=== PATIENT | female | born 2000 | race African-American/Black ===

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

== ENCOUNTER → 2021-04-04 | Outpatient (CLI) | payer OTHER ==
[~2021-04-04] MED LIST: ZOLPIDEM 5MG TABLET PO ONE
[2021-04-04 02:16] LABS: MICROSCOPIC AUTO
== END | disposition home or self-care (01) ==
LOC: LDOP 01:00
PROVIDERS: ATTEND Obstetrics & Gynecology
DX: O62.9 Abnormality of forces of labor, unspecified (principal); O42.913 Preterm premature rupture of membranes, unspecified as to length of time between rupture and onset of labor, third trimester; Z3A.36 36 weeks gestation of pregnancy
CPT/HCPCS: 59025; 81001; 87081; 87086; 89060; Q0114

== ENCOUNTER 2021-04-30 01:58 | Inpatient (IN) | payer OTHER ==
[~2021-04-30] VITALS: Ht 167.6 cm; Wt 84.1 kg
[2021-04-30 02:20] VITALS: BP 136/73
[2021-04-30] MEDS: LACTATED RINGERS 1,000 ML IVBOLUS PRN ×2 (02:30→03:15)
[2021-04-30] MEDS ORDERED: LIDOCAINE 1%, 20ML ONE (02:54)
[2021-04-30] MEDS ORDERED: MISOPROSTOL 200 MCG TABLET ONE (02:54)
[2021-04-30] MEDS ORDERED: ALUMINUM/MAG/SIMETHICONE 30 ML UDC PO PRN (03:00)
[2021-04-30] MEDS ORDERED: ONDANSETRON 2MG/ML, 2ML IVPush PRN ×2 (03:00→04:00)
[2021-04-30] MEDS ORDERED: LACTATED RINGERS 1,000 ML IV SCH (03:00)
[2021-04-30] MEDS ORDERED: D5%-LACTATED RINGERS 1,000 ML IV SCH (03:00)
[2021-04-30] MEDS ORDERED: FENTANYL PF 100 MCG/2ML IV PRN (03:00)
[2021-04-30] MEDS ORDERED: SODIUM CHLORIDE FLUSH 10ML SYR IVF PRN (03:00)
[2021-04-30] MEDS ORDERED: TERBUTALINE 1 MG/ML, 1ML SQ PRN (03:00)
[2021-04-30] MEDS ORDERED: OXYTOCIN 30U/ 0.9% NaCL 500ML 500 ML IV ONE (03:00)
[2021-04-30] MEDS ORDERED: METOCLOPRAMIDE 5 MG/ML, 2ML IVPush PRN (03:00)
[2021-04-30] MEDS ORDERED: TERBUTALINE 1 MG/ML, 1ML IVPush PRN (03:00)
[2021-04-30] MEDS ORDERED: FENTANYL PF 100 MCG/2ML IVPush PRN (03:00)
[2021-04-30 03:09] LABS: BASOPHILS % (AUTO) 1 % (0-1); EOSINOPHILS % (AUTO) 1 % (1-7); LYMPHOCYTES % (AUTO) 16 % (22-44); MEAN CORPUSCULAR HEMOGLOBIN 26.8 pg (27.0-34.8); MEAN CORPUSCULAR HGB CONC 33.6 g/dL (32.4-35.8); MEAN PLATELET VOLUME 7.5 fL (7.4-10.4); MONOCYTES % (AUTO) 6 % (2-9); NEUTROPHILS % (AUTO) 77 % (42-75); PLATELET COUNT 230 x10^3/uL (130-400); RED BLOOD COUNT 4.26 x10^6/uL (3.82-5.3); RED CELL DISTRIBUTION WIDTH 15.6 % (9.6-15.2)
[2021-04-30] MEDS ORDERED: BUPIVACAINE 0.25% ONE (03:25)
[2021-04-30] MEDS ORDERED: FENTANYL/BUPIV./NS/PF 250 ML EPIDCONT ONE (03:25)
[2021-04-30] MEDS ORDERED: EPHEDRINE 50 MG/ML, 1ML IVPush PRN (04:00)
[2021-04-30] MEDS ORDERED: NALOXONE 0.4 MG/ML, 1ML IVPush PRN (04:00)
[2021-04-30] MEDS ORDERED: FENTANYL/BUPIV./NS/PF 250 ML EPIDCONT SCH (04:00)
[2021-04-30] MEDS ORDERED: DIPHENHYDRAMINE 50 MG/ML, 1ML IVPush PRN (04:00)
[2021-04-30] MEDS: LACTATED RINGERS 1,000 ML IV SCH ×3 (10:27→20:00)
[2021-04-30] MEDS ORDERED: RHOGAM FROM BLOOD BANK 1 NOTE EA IM/IV ONE (10:30)
[2021-04-30] MEDS ORDERED: BISACODYL 10 MG SUPP PR PRN (10:30)
[2021-04-30] MEDS ORDERED: HYDROcodone/APAP 5/325 TABLET PO PRN (10:30)
[2021-04-30] MEDS ORDERED: OXYTOCIN 30U/ 0.9% NaCL 500ML 500 ML ONE (10:30)
[2021-04-30] MEDS ORDERED: MISOPROSTOL 200 MCG TABLET PR PRN (10:30)
[2021-04-30] MEDS ORDERED: ONDANSETRON 2MG/ML, 2ML IV PRN (10:30)
[2021-04-30] MEDS ORDERED: ACETAMINOPHEN 325 MG TABLET PO PRN (10:30)
[2021-04-30] MEDS ORDERED: IBUPROFEN 600 MG TABLET ONE (10:31)
[2021-04-30] MEDS: OXYTOCIN 30U/ 0.9% NaCL 500ML 500 ML IV SCH ×2 (11:08→20:30)
[2021-04-30 12:20] VITALS: BP 102/66
[2021-04-30] MEDS: IBUPROFEN 200 MG TABLET PO PRN ×2 (12:59→21:44)
[2021-04-30] MEDS: OXYcodone/APAP 5/325MG TABLET PO PRN ×3 (12:59→21:45)
[2021-04-30 17:00] VITALS: BP 106/68
[2021-04-30 18:25] LABS: BASOPHILS % (AUTO) 0 % (0-1); EOSINOPHILS % (AUTO) 0 % (1-7); LYMPHOCYTES % (AUTO) 12 % (22-44); MEAN CORPUSCULAR HEMOGLOBIN 27.2 pg (27.0-34.8); MEAN PLATELET VOLUME 7.7 fL (7.4-10.4); MONOCYTES % (AUTO) 4 % (2-9); NEUTROPHILS % (AUTO) 83 % (42-75); PLATELET COUNT 227 x10^3/uL (130-400); RED BLOOD COUNT 3.86 x10^6/uL (3.82-5.3); RED CELL DISTRIBUTION WIDTH 15.1 % (9.6-15.2)
[2021-04-30] MEDS: DOCUSATE 100 MG CAPSULE PO PRN (18:58)
[2021-04-30 19:30] VITALS: BP 108/65
[2021-05-01 01:15] VITALS: BP 103/61
[2021-05-01] MEDS: OXYcodone/APAP 5/325MG TABLET PO PRN (01:58)
[2021-05-01 03:57] VITALS: BP 106/68
[2021-05-01] MEDS: IBUPROFEN 200 MG TABLET PO PRN ×2 (04:01→15:05)
[2021-05-01] MEDS: LACTATED RINGERS 1,000 ML IV SCH ×2 (04:02→12:00)
[2021-05-01] MEDS: OXYTOCIN 30U/ 0.9% NaCL 500ML 500 ML IV SCH (06:30)
[2021-05-01 07:20] VITALS: BP 109/72
[2021-05-01 08:19] LABS: BASOPHILS % (AUTO) 0 % (0-1); EOSINOPHILS % (AUTO) 2 % (1-7); LYMPHOCYTES % (AUTO) 20 % (22-44); MEAN CORPUSCULAR HEMOGLOBIN 26.8 pg (27.0-34.8); MEAN CORPUSCULAR HGB CONC 33.3 g/dL (32.4-35.8); MEAN PLATELET VOLUME 7.6 fL (7.4-10.4); MONOCYTES % (AUTO) 5 % (2-9); NEUTROPHILS % (AUTO) 74 % (42-75); PLATELET COUNT 212 x10^3/uL (130-400); RED BLOOD COUNT 3.72 x10^6/uL (3.82-5.3); RED CELL DISTRIBUTION WIDTH 15.5 % (9.6-15.2)
[2021-05-01 08:29] LABS: ALBUMIN 2.4 g/dL (3.4-5.0); ANION GAP 8 mmol/L (5-15); CALCIUM 8.2 mg/dL (8.5-10.1); CHLORIDE 104 mmol/L (98-107)
[2021-05-01 08:35] LABS: ALANINE AMINOTRANSFERASE 19 U/L (12-78); ALKALINE PHOSPHATASE 187 U/L (45-117); BILIRUBIN,TOTAL 0.2 mg/dL (0.2-1.0); CREATININE 0.56 mg/dL (0.55-1.02); TOTAL PROTEIN 5.9 g/dL (6.4-8.2)
[2021-05-01] MEDS ORDERED: PRENATAL VIT/IRON/FA 1 EACH TABLET PO SCH (09:00)
[2021-05-01] MEDS: DOCUSATE 100 MG CAPSULE PO PRN (09:58)
[2021-05-01] MEDS ORDERED: IBUP-1223 PO (15:11)
[2021-05-01] MEDS ORDERED: DOCU-131 PO (15:11)
== END 2021-05-01 16:20 | disposition home or self-care (01) | DRG 807 ==
LOC: LDOP 01:58 → LDIP 02:51 → 2NW 12:09
PROVIDERS: ADMIT Obstetrics & Gynecology; ATTEND Obstetrics & Gynecology
PROC: 10E0XZZ Delivery of Products of Conception, External Approach (ICD-10-PCS; principal; 2021-04-30)
PROC: 0KQM0ZZ Repair Perineum Muscle, Open Approach (ICD-10-PCS; 2021-04-30)
PROC: 3E0R3BZ Introduction of Anesthetic Agent into Spinal Canal, Percutaneous Approach (ICD-10-PCS; 2021-04-30)
PROC: 00HU33Z Insertion of Infusion Device into Spinal Canal, Percutaneous Approach (ICD-10-PCS; 2021-04-30)
DX: O69.81X0 Labor and delivery complicated by cord around neck, without compression, not applicable or unspecified (principal); Z37.0 Single live birth; Z3A.39 39 weeks gestation of pregnancy; O70.1 Second degree perineal laceration during delivery; E55.9 Vitamin D deficiency, unspecified; O99.284 Endocrine, nutritional and metabolic diseases complicating childbirth; Z20.822 Contact with and (suspected) exposure to COVID-19
CPT/HCPCS: 36415; 80053; 85025; 86592; 86850; 86900; 87635; 89060; G0378; J2590; J3010; J7120; Q0114